=== PATIENT | male | born 1990 | race Caucasian/White ===

== ENCOUNTER 2016-07-10 13:01 | Emergency (ER) | payer MEDICARE, MEDICAID ==
[~2016-07-10] VITALS: Ht 175.3 cm; Wt 90.1 kg
[~2016-07-10 13:01] MED LIST: DIASTAT10 RECTAL; ZIPR20CA2 PO
[2016-07-10 13:03] VITALS: BP 158/110; PULSE 91; RESP 15; O2SAT 100
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
[2016-07-10 13:48] LABS: BASOPHILS % (AUTO) 0.4 % (0-3); EOSINOPHILS % (AUTO) 3.6 % (0-5); MONOCYTES % (AUTO) 9.5 % (4-12); Mean Corpuscular Hemoglobin 30.9 pg (27.0-35.0); Mean Corpuscular Volume 91.2 fL (81-100); Platelet Count 328 bil/L (150-400)
[2016-07-10 16:18] VITALS: BP 155/88; PULSE 99; RESP 16; O2SAT 96
== END 2016-07-10 16:21 | disposition home or self-care (01) ==
LOC: SED 13:01
DX: F43.0 Acute stress reaction (principal); Z88.1 Allergy status to other antibiotic agents; Z88.5 Allergy status to narcotic agent

== ENCOUNTER 2016-07-19 13:06 | Inpatient (IN) | payer MEDICARE, MEDICAID ==
[~2016-07-19] VITALS: Ht 175.3 cm; Wt 118.0 kg
[2016-07-19 13:10] VITALS: BP 147/98; PULSE 63; RESP 20; O2SAT 98
[2016-07-19 13:55] LABS: BASOPHILS % (AUTO) 0.5 % (0-3); EOSINOPHILS % (AUTO) 3.1 % (0-5); MONOCYTES % (AUTO) 8.7 % (4-12); Mean Corpuscular Volume 91.1 fL (81-100); NEUTROPHILS % (AUTO) 63.7 % (40-74); Platelet Count 338 bil/L (150-400)
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
[2016-07-19 15:19] LABS: APPEARANCE,URINE HAZY (CLEAR,HAZY); COLOR,URINE YELLOW (YELLOW); OCCULT BLOOD,URINE NEGATIVE (NEGATIVE); UROBILINOGEN,URINE NORMAL (NORMAL)
[2016-07-19 16:18] VITALS: BP 146/110; PULSE 80; RESP 16
[2016-07-19] MEDS ORDERED: LORazepam 1 mg Tablet PO ONE (18:50)
[2016-07-19] MEDS ORDERED: Magnesium Hydroxide 10 mL Oral Concentration PO PRN (19:35)
[2016-07-19] MEDS ORDERED: Alum-Mag Hydrox-Simeth 30 mL Suspension PO PRN (19:35)
[2016-07-19] MEDS ORDERED: LORazepam 1 mg Tablet PO PRN (19:40)
[2016-07-20] MEDS: buPROPion XL 150 mg ER24 Tablet PO SCH (14:50)
[2016-07-20] MEDS ORDERED: Benzocaine-Menthol Lozenge 2/Pkg PO PRN (17:00)
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
[2016-07-21] MEDS ORDERED: buPROPion XL 150 mg ER24 Tablet PO SCH (08:30)
[2016-07-21] MEDS: buPROPion XL 150 mg ER24 Tablet PO SCH (09:30)
[2016-07-21 15:21] VITALS: BP 131/86; PULSE 105; RESP 18
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
[2016-07-22] MEDS: buPROPion XL 150 mg ER24 Tablet PO SCH (07:24)
[2016-07-22 09:02] VITALS: BP 152/85; PULSE 103; RESP 18
--- NOTE | 2016-07-22 16:19 | PCM.DIMED ---
Discharge Instructions Date of Service July 22, 2016 Dates of Hospitalization July 19, 2016 at 19:15 Discharge Diagnosis Discharge Diagnosis AXIS I: Post-traumatic stress disorder v. major depression, recurrent ADD by history Rule out FARHAT AXIS II: Defer AXIS III: See PMH AXIS IV: Severe AXIS V: GAF 30 Diet No restrictions Activity No restrictions Patient Instructions Should you have any thoughts of harming yourself or others, please call the crisis line, your provider, 911, or go to the nearest Emergency Department. Do not change or discontinue your medications without discussing with your provider. You have been given a prescription for 14 days supply of your medication Follow-up plan Clinician Antonio on 07/29/16 at 11:00am [facility] [address] [place] [address] Clinician Dexter on 07/27/16 at 11:00am [facility] [address] [place] [address] Ry Beltre MD July 22, 2016 16:19
[2016-07-22] MEDS ORDERED: BUPR-97 PO (16:21)
[2016-07-22] MEDS ORDERED: PRAZ2CAP PO (16:21)
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
== END 2016-07-22 16:40 | disposition home or self-care (01) | DRG 882 ==
LOC: SED 13:06 → MHC 19:15
PROVIDERS: ADMIT Psychiatry & Neurology Psychiatry; ATTEND Psychiatry & Neurology Psychiatry
DX: F43.10 Post-traumatic stress disorder, unspecified (principal); R45.851 Suicidal ideations; F33.9 Major depressive disorder, recurrent, unspecified; Z59.0 Homelessness; F98.8 Other specified behavioral and emotional disorders with onset usually occurring in childhood and adolescence; Z63.5 Disruption of family by separation and divorce

== ENCOUNTER 2016-07-29 10:35 | Emergency (ER) | payer MEDICARE, MEDICAID ==
[~2016-07-29 10:35] MED LIST changes: +BUPR-97 PO; -DIASTAT10 RECTAL; +PRAZ2CAP PO; -ZIPR20CA2 PO
[2016-07-29 11:08] VITALS: BP 141/81; PULSE 89; RESP 16; O2SAT 97
[2016-07-29] MEDS ORDERED: buPROPion XL 150 mg ER24 Tablet PO ONE (12:15)
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
[2016-07-29 14:45] LABS: BASOPHILS % (AUTO) 0.3 % (0-3); EOSINOPHILS % (AUTO) 3.6 % (0-5); MONOCYTES % (AUTO) 10.8 % (4-12); Mean Corpuscular Hemoglobin 31.4 pg (27.0-35.0); Mean Corpuscular Volume 91.7 fL (81-100); NEUTROPHILS % (AUTO) 65.5 % (40-74); Platelet Count 320 bil/L (150-400)
[2016-07-29 20:14] VITALS: BP 138/84; PULSE 86; RESP 18; O2SAT 96
[2016-07-29 21:03] VITALS: BP 138/84; PULSE 86; RESP 18; O2SAT 96
== END 2016-07-29 21:04 | disposition home or self-care (01) ==
LOC: EDBD 10:35 → EDUNIT# 10:35 → SED 10:35
DX: F43.0 Acute stress reaction (principal); F31.9 Bipolar disorder, unspecified; F90.9 Attention-deficit hyperactivity disorder, unspecified type; G40.909 Epilepsy, unspecified, not intractable, without status epilepticus; R19.7 Diarrhea, unspecified; Z91.5 Personal history of self-harm; Z88.1 Allergy status to other antibiotic agents; Z88.5 Allergy status to narcotic agent
CPT/HCPCS: 36415; 80053; 81002; 82075; 84443; 85025; 99285; Q0177